=== PATIENT | male | born 1970 | race Caucasian/White ===

== ENCOUNTER 2016-08-09 20:24 | Emergency (ER) | payer MEDICAID ==
[~2016-08-09] VITALS: Ht 170.2 cm; Wt 80.6 kg
[2016-08-09 20:26] VITALS: BP 142/100
[2016-08-09] MEDS ORDERED: HYDROcodone/APAP 5/325 TABLET ONE (21:11)
[2016-08-09] MEDS ORDERED: HYDROcodone/APAP 5/325 TABLET PO ONE (21:30)
[2016-08-09] MEDS ORDERED: IBUPROFEN 200 MG TABLET ONE (22:48)
[2016-08-09] MEDS ORDERED: IBUPROFEN 200 MG TABLET PO ONE (23:00)
== END 2016-08-09 22:53 | disposition home or self-care (01) ==
LOC: ED 22:30
DX: S52.121A Displaced fracture of head of right radius, initial encounter for closed fracture (principal); M70.21 Olecranon bursitis, right elbow; X37.1XXA Tornado, initial encounter; Y93.89 Activity, other specified; Y92.89 Other specified places as the place of occurrence of the external cause; Y99.8 Other external cause status
CPT/HCPCS: 29105; 99284